=== PATIENT | female | born 1960 | race Caucasian/White ===

== ENCOUNTER → 2016-05-02 | Outpatient (CLI) | payer OTHER ==
[~2016-05-02] MED LIST: ACETAMINOPHEN PO; ASPIRIN81 M2 PO; CELEXA20 M1; CYCLOBENZAPRINE5 MG PO; DESYREL50 MG; EC-NAPROSYN375 MG PO; HYDROXYZINE HCL10 MG PO; KEFLEX500 MG PO; KEPPRA500 MG PO; LIPITOR20 MG PO; LIPITOR40 MG PO; OMEPRAZOLE20 M2 PO; PREDNISONE10 MG PO; PREDNISONE50 MG PO; PROZAC PO; SYNTHROID PO; SYNTHROID112 MCG PO; SYNTHROID75 MCG PO; TRAMADOL-APAP1 EACH PO
--- NOTE | ~2016-05-02 | CT4 ---
[facility] A Service of [facility] [place] RADIOLOGY TEXT RESULTS PATIENT: ALEXIS MAZA LOCATION: [facility] : 62 UNIT #: [id number] AGE: [address]: Aleida Ayoub MD SEX: F ORDER DR: [id number] [address] [id number] O MR#: [id number] Acc #: [id number] NAME: ALEXIS MAZA : 1960 SEX: F STUDY DATE/TIME: 05/02/2016 10:54 UNIT: SCT ROOM: STUDY DESCRIPTION: CT Abd and Pelv Wo Cont Attending Physician: Aleida Ayoub M.D. Referring Physician: Aleida Ayoub M.D. Ordering Physician: Aleida Ayoub M.D. Primary Care Physician: Aleida Ayoub M.D. MEDICAL IMAGING REPORT This report is preliminary unless electronic signature is present. EXAM CT abdomen and pelvis without contrast INDICATION Generalized abdominal pain, worse in the right upper quadrant for the past year. PROCEDURE Unenhanced CT of the abdomen and pelvis COMPARISON None TECHNIQUE This CT exam was performed with one or more of the following radiation dose reduction techniques: automatic exposure control, adjustment of mA and/or kV according to patient size, and iterative reconstruction. FINDINGS ABDOMEN WITHOUT CONTRAST: The included lung bases are clear. The liver measures 17.8 cm in length. Mild diffuse hepatic steatosis. The spleen, kidneys, adrenal glands, pancreas and gallbladder have an unremarkable unenhanced appearance. The bowel loops are nondilated. Appendix is unremarkable. PELVIS WITHOUT CONTRAST: No pelvic mass or fluid. No aggressive appearing bone lesion. IMPRESSION 1. No acute findings. 2. Hepatic steatosis. [facility] A Service [facility] RADIOLOGY TEXT RESULTS PATIENT: ALEXIS MAZA LOCATION: [facility] : 62 UNIT #: [id number] AGE: [address]: Aleida Ayoub MD SEX: F ORDER DR: Dictated by... Diogenes Mark M.D. THIS IS AN ELECTRONICALLY VERIFIED REPORT Diogenes Mark M.D. at 05/03/2016 7:07 AM Kesha TD: 05/02/2016 14:10 JOB #: [id number] MEDICAL IMAGING REPORT
== END | disposition home or self-care (01) ==
LOC: SCT 10:28
DX: R10.84 Generalized abdominal pain (principal); K76.0 Fatty (change of) liver, not elsewhere classified
CPT/HCPCS: 74176

== ENCOUNTER → 2016-06-20 | Day surgery (SDC) | payer OTHER ==
--- NOTE | ~2016-06-20 | OR ---
Unit #: [id number] #: [id number] Patient: ALEXIS MAZA [id number] [place], [place] [address] [id number] O MR#: [id number] NAME: ALEXIS MAZA ROOM: Date of Procedure: 06/20/2016 Admission Date: 06/20/2016 Surgeon: Ahsan Duffy M.D. : 1960 Attending Physician: Ahsan Duffy M.D. Primary Care Physician: Aleida Ayoub M.D. OPERATIVE REPORT PROCEDURES PERFORMED 1. Esophagogastroduodenoscopy with biopsy. 2. Colonoscopy with biopsy. INDICATIONS FOR PROCEDURE A 55-year-old female with average risk for colorectal cancer, also with significant epigastric pain, undergoing evaluation with upper endoscopy and colonoscopy. MEDICATIONS Monitored anesthesia. POSTOPERATIVE FINDINGS 1. Small hiatal hernia. 2. Mild gastritis. Biopsies taken. 3. Normal duodenum and distal duodenum. 4. Colonoscopy completed to cecum. Prep was adequate. 5. 3 mm descending colon polyp, removed using biopsy forceps. 6. Small hemorrhoids. PLAN Follow up on the pathology report. If adenomatous, repeat colonoscopy in 5 years. DESCRIPTION OF PROCEDURE The patient was explained of the procedure, risks, and benefits along with risks and benefits of anesthesia. She was brought to the endoscopy room. Propofol anesthesia was given. Bite block was placed. The scope was passed down the mouth into the esophagus, stomach, duodenum, and distal duodenum. Findings as described. Biopsies taken. Gently, I pulled the scope out the patient's mouth. At this time, she was turned around and repositioned for colonoscopy. Rectal exam was done, which was normal. Colonoscope was lubricated, passed up the rectum, advanced under direct vision all the way to the cecum. Cecum was identified by ileocecal valve and appendiceal orifice. I then started to pull the scope out carefully looking. Small polyp seen in descending colon was removed using biopsy forceps. Rest of the mucosa was normal and healthy. I retroflexed in the rectum, small hemorrhoids seen. Scope was gently pulled out. She tolerated it well. Unit #: [id number] #: [id number] Patient: ALEXIS MAZA Dictated by... Maikel Appiah/uri TD: 06/20/2016 23:34 JOB #: [id number] CC: Susi/neptali Please Delete OPERATIVE REPORT Page 1 of 1 X Ahsan Duffy MD PROCEDURE OPERATIVE NOTE
== END | disposition home or self-care (01) ==
LOC: COPS 07:54
PROVIDERS: Internal Medicine
PROC: 0DB68ZX Excision of Stomach, Via Natural or Artificial Opening Endoscopic, Diagnostic (ICD-10-PCS; principal; 2016-06-20 09:30)
PROC: 0DBE8ZX Excision of Large Intestine, Via Natural or Artificial Opening Endoscopic, Diagnostic (ICD-10-PCS; 2016-06-20 09:30)
DX: K29.70 Gastritis, unspecified, without bleeding (principal); K44.9 Diaphragmatic hernia without obstruction or gangrene; Z12.11 Encounter for screening for malignant neoplasm of colon; K64.9 Unspecified hemorrhoids; K21.9 Gastro-esophageal reflux disease without esophagitis; E78.5 Hyperlipidemia, unspecified; E03.9 Hypothyroidism, unspecified; M54.9 Dorsalgia, unspecified; Z79.899 Other long term (current) drug therapy; Z98.51 Tubal ligation status; Z87.898 Personal history of other specified conditions
CPT/HCPCS: 88305; 88312; J2250